=== PATIENT | female | born 1955 | race Caucasian/White ===

== ENCOUNTER 2021-08-17 19:16 | Emergency (ER) | payer MEDICARE, OTHER ==
--- NOTE | 2021-08-17 19:33 | ERPHSYRPT ---
- History of Present Illness Time Seen by Provider: 08/17/21 19:31 Source: patient Exam Limitations: no limitations Physician History: This is a right-handed 66-year-old white female who fell onto a right outstretched hand and presents to the emergency department with pain in her right wrist right forearm up to her elbow. She did not hit her head. She did not lose consciousness. Patient cannot take oral NSAIDs. Occurred: just prior to arrival Method of Injury: fell Quality: constant, aching, throbbing Severity of Pain-Max: moderate Severity of Pain-Current: moderate Extremities Pain Location: elbow: right, forearm: right, wrist: right Modifying Factors: Improves With: movement Associated Symptoms: none Allergies/Adverse Reactions: diphenhydramine HCl [From Benadryl] Allergy (Severe, Verified 08/17/21 19:27) seizure Penicillins Allergy (Severe, Verified 08/17/21 19:27) Difficulty Breathing chamomile flower [chamomile lawler] Allergy (Mild, Verified 08/17/21 19:27) Blisters gabapentin [From Neurontin] Allergy (Mild, Verified 08/17/21 19:27) Hives vancomycin Allergy (Mild, Verified 08/17/21 19:27) Itching Latex, Natural Rubber Adverse Reaction (Mild, Verified 08/17/21 19:27) Rash Home Medications: ARIPiprazole [Abilify] 5 mg PO DAILY 08/24/13 [History] Acetaminophen with Codeine [Tylenol #3 (Acetaminophen-Cod #3) Tablet] 1 tab PO Q6-8HPRN PRN 08/24/13 [History] Citalopram Hydrobromide [Citalopram HBr] 20 mg PO DAILY 08/24/13 [History] Dexlansoprazole [Dexilant] 60 mg PO DAILY 08/24/13 [History] Trazodone HCl 50 mg [Desyrel 50 mg] 50 mg PO DAILY 08/24/13 [History] Ciprofloxacin [Cipro 500 MG] 500 mg PO BID 10/20/13 [History] Solifenacin Succinate [Vesicare] 5 mg PO DAILY 10/20/13 [History] Hx Tetanus, Diphtheria Vaccination/Date Given: No Hx Influenza Vaccination/Date Given: No Hx Pneumococcal Vaccination/Date Given: No Travel Risk - International Travel Have you traveled outside of the country in past 3 weeks: No - Coronavirus Screening Are you exhibiting any of the following symptoms?: No Close contact with a COVID-19 positive Pt in past 14-21 Days: No - Review of Systems Constitutional: No Symptoms Eyes: No Symptoms Ears, Nose, & Throat: No Symptoms Respiratory: No Symptoms Cardiac: No Symptoms Abdominal/Gastrointestinal: No Symptoms Genitourinary Symptoms: No Symptoms Musculoskeletal: Fall, Injury (Right forearm and wrist) Skin: No Symptoms Neurological: No Symptoms Psychological: No Symptoms Endocrine: No Symptoms Hematologic/Lymphatic: No Symptoms Immunological/Allergic: No Symptoms All Other Systems: Reviewed and Negative - Past Medical History Pertinent Past Medical History: Yes Neurological History: Seizures ENT History: No Pertinent History Cardiac History: No Pertinent History Respiratory History: Other Endocrine Medical History: Other Musculoskeletal History: Osteoarthritis, Other GI Medical History: Ulcer, GERD History: No Pertinent History Psycho-Social History: Depression, Anxiety Female Reproductive Disorders: No Pertinent History Other Medical History: HYPOGLYCEMIC. HAD EPISODE IN WHICH SHE WAS COMATOSE AND THEN HAD TO DO [facility]. HX OF SEIZURE AN ALLERGIC REACTION TO BENADRYL. HX OF COVID - REPORTS WAS ASYMPTOMATIC. IS VACCINATED. TARSAL TUNNEL REPAIRED ON RIGHT 2017. RIGHT TOTAL KNEE REPLACMENT "AT LEAST 5 YEARS AGO". CHOLECYSTECTOMY. ANEMIC REQUIRING IRON INFUSION - TESTED EVERY 6 MONTHS. - Past Surgical History Past Surgical History: Yes Neuro Surgical History: No Pertinent History Cardiac: No Pertinent History Respiratory: No Pertinent History Gastrointestinal: Other, Appendectomy, Cholecystectomy Genitourinary: No Pertinent History Musculoskeletal: Orthopedic Surgery Female Surgical History: Hysterectomy, Section Other Surgical History: r knee x 7, r wrist - gastric bypass - Social History Smoking Status: Former smoker Exposure to second hand smoke: No Drug Use: none Patient Lives Alone: No - Nursing Vital Signs Nursing Vital Signs: Initial Vital Signs Temperature 96.9 F 08/17/21 19:28 Pulse Rate 68 08/17/21 19:28 Respiratory Rate 16 08/17/21 19:28 Blood Pressure 158/80 08/17/21 19:28 O2 Sat by Pulse Oximetry 99 08/17/21 19:28 Pain Scale Pain Intensity 10 - Physical Exam General Appearance: mild distress (To moderate), alert, anxiety Eyes, Ears, Nose, Throat Exam: normal ENT inspection, moist mucous membranes Neck Exam: normal inspection, non-tender, supple, full range of motion Cardiovascular/Respiratory Exam: chest non-tender, no respiratory distress Back Exam: normal inspection, normal range of motion, No CVA tenderness, No vertebral tenderness Shoulder Exam: normal inspection, non-tender, no evidence of injury, normal ROM Elbow/Forearm Exam: normal inspection, no evidence of injury, bone tenderness, limited ROM, pain, soft tissue tenderness Wrist Exam: no evidence of injury, ecchymosis (Volar aspect right wrist), limited ROM, pain, soft tissue tenderness Hand Exam: normal inspection, non-tender, no evidence of injury, normal ROM Neuro/Tendon Exam: normal sensation, normal motor functions, normal tendon functions, responds to pain, no evidence tendon injury, No motor deficit, No sensory deficit Mental Status Exam: alert, 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, cooperative Skin Exam: normal color, warm, dry SpO2 Interpretation: normal O2 Delivery: Room Air - Course Nursing assessment & vital signs reviewed: Yes Ordered Tests: Active Orders 24 hr Category Date Time Status Sling Application STAT Care 08/17/21 20:48 Active Splint STAT Care 08/17/21 20:48 Active FOREARM Stat Exams 08/17/21 19:56 Completed WRIST (MIN 3 VIEWS) Stat Exams 08/17/21 19:38 Completed Medication Summary Discontinued Medications Generic Name Dose Route Start Last Admin Trade Name Mei PRN Reason Stop Dose Admin Hydromorphone HCl 0.5 mg 08/17/21 19:46 08/17/21 20:30 Hydromorphone 1 Mg/1ml Inj 1 Mg/Ml Syringe IM 08/17/21 19:47 0.5 mg STAT ONE Administration Hydromorphone HCl Confirm 08/17/21 20:28 Hydromorphone 1 Mg/1ml Inj 1 Mg/Ml Syringe Administered 08/17/21 20:29 Dose 1 mg .ROUTE .STK-MED ONE Ketorolac Tromethamine 60 mg 08/17/21 19:46 08/17/21 20:29 Ketorolac Tromethamine 30 Mg/Ml Inj IM 08/17/21 19:47 60 mg STAT ONE Administration Ketorolac Tromethamine Confirm 08/17/21 20:27 Ketorolac Tromethamine 30 Mg/Ml Inj Administered 08/17/21 20:28 Dose 60 mg .ROUTE .STK-MED ONE Ondansetron HCl 4 mg 08/17/21 19:47 08/17/21 20:30 Zofran 4 Mg/Udtablet Orally Disintegrating PO 08/17/21 19:48 4 mg STAT ONE Administration Ondansetron HCl Confirm 08/17/21 20:27 Zofran 4 Mg/Udtablet Orally Disintegrating Administered 08/17/21 20:28 Dose 4 mg .ROUTE .STK-MED ONE - Progress Progress: improved, pain not gone completely Progress Note: 08/17/21 20:50 X-ray of right wrist shows no acute fracture or dislocation. X-ray of right forearm shows no acute fracture or dislocation. Medical decision making: This patient has pain in the right wrist and right forearm despite no evidence of fracture based on x-rays that were read by myself and the radiologist. We will place her in a right wrist splint and put her in a sling and have her follow-up in the [facility] orthopedic clinic on Friday, August 20, 2021 at 8 AM. We will send her home with 2 Walsh pain pills and then an additional 6 Walsh 5/25 pills and a prescription that will be sent to her pharmacy. Counseled pt/family regarding: diagnosis, need for follow-up, rad results - Departure Departure Disposition: Home Clinical Impression: Right wrist pain, Right forearm pain Condition: Stable Critical Care Time: No Referrals: JERE PACHECO MD [Primary Care Provider] - Follow up/PCP as directed Additional Instructions: Wear the right wrist splint and use the right arm sling for comfort. Use the medication as prescribed. Follow-up in the [facility] walk-in orthopedic clinic on Friday at 8 AM for further evaluation and management. Take your pain medicine as prescribed. Prescriptions: Hydrocodone/APAP 5/325 [Walsh 5/325 mg] 1 each PO Q8H PRN PRN #6 tablet MDD 3 PRN Reason: Pain
[2021-08-17] MEDS ORDERED: TORAdol 30 mg Injection IM ONE (19:46)
[2021-08-17] MEDS ORDERED: Hydromorphone 1 mg/ml Injection IM ONE (19:46)
[2021-08-17] MEDS ORDERED: ZOFRAN ODT 4 MG PO ONE (19:47)
[2021-08-17] MEDS ORDERED: ZOFRAN ODT 4 MG ONE (20:27)
[2021-08-17] MEDS ORDERED: TORAdol 30 mg Injection ONE (20:27)
[2021-08-17] MEDS ORDERED: Hydromorphone 1 mg/ml Injection ONE (20:28)
[2021-08-17 20:40] VITALS: PULSE 63
--- NOTE | 2021-08-17 20:46 | XRAY ---
Indication: Pain following fall. Comparison: None 2 view right forearm demonstrates mild osteopenia. No other bony, articular, or soft tissue abnormalities.
--- NOTE | 2021-08-17 20:48 | XRAY ---
Indication: Pain following fall. Comparison: None 3 view right wrist demonstrate mild osteopenia. No other bony, articular, or soft tissue abnormalities.
[2021-08-17] MEDS ORDERED: NORCO 5/325 MG PO ONE (20:54)
[2021-08-17] MEDS ORDERED: NORCO 5/325 MG ONE (21:07)
[2021-08-17 21:17] VITALS: BP 159/80; O2SAT 98
== END 2021-08-17 21:27 | disposition home or self-care (01) ==
LOC: ED 19:16
DX: M25.531 Pain in right wrist (principal); M79.631 Pain in right forearm; W19.XXXA Unspecified fall, initial encounter; Z79.891 Long term (current) use of opiate analgesic; Z79.899 Other long term (current) drug therapy
CPT/HCPCS: 73090; 73110; 96372; 99284; J1170; J1885; L3908; Q0162; A9270-GY

== ENCOUNTER 2022-07-13 20:29 | Emergency (ER) | payer MEDICARE, OTHER ==
--- NOTE | 2022-07-13 20:57 | ERPHSYRPT ---
- History of Present Illness Time Seen by Provider: 07/13/22 20:56 Source: patient, family Exam Limitations: no limitations Patient Subjective Stated Complaint: pt states she has been coughing since friday and has pain with coughing and deep breathing and some shortness of breath with exertion. Triage Nursing Assessment: pt alerta nd oriented, answers questions approp. pt ambulates back to room iwth steady gait noted. pt short of breath with exertion. interimittent hacking cough noted. pt reports pain in ribs with coughing. denies chest pain or pressure. Physician History: This is an overweight 67-year-old white female patient of Dr. Pacheco and has a history of osteoarthritis, hypoglycemia, seizure disorder gastroesophageal reflux disease and has had a gastric bypass in the past. She presents with her with the complaint of coughing for 3 days. Her generalized pain is getting worse especially with coughing. She does have mild shortness of breath with coughing spells. She also has bilateral rib pain with coughing. She has had no nausea vomiting or diarrhea. She denies abdominal pain. She has no known exposure with individuals who have similar symptoms or been diagnosed with flu. Timing/Duration: day(s) (3), intermittent, worse Cough Quality/Degree: mild, dry cough Possible Cause: occasional episodes Modifying Factors: Improves With: coughing Associated Symptoms: chest pain/soreness (Only with coughing and its the ribs not the anterior chest), cough, muscle aches, sore throat, No fever, No chills, No wheezing Allergies/Adverse Reactions: diphenhydramine HCl [From Benadryl] Allergy (Severe, Verified 07/13/22 20:46) seizure Penicillins Allergy (Severe, Verified 07/13/22 20:46) Difficulty Breathing chamomile flower [chamomile lawler] Allergy (Mild, Verified 07/13/22 20:46) Blisters gabapentin [From Neurontin] Allergy (Mild, Verified 07/13/22 20:46) Hives Latex, Natural Rubber Allergy (Mild, Verified 07/13/22 20:46) Rash vancomycin Allergy (Mild, Verified 07/13/22 20:46) Itching only iv Home Medications: ARIPiprazole [Abilify] 5 mg PO DAILY 08/24/13 [History] Acetaminophen with Codeine [Tylenol #3 (Acetaminophen-Cod #3) Tablet] 1 tab PO Q6-8HPRN PRN 08/24/13 [History] Citalopram Hydrobromide [Citalopram HBr] 20 mg PO DAILY 08/24/13 [History] Dexlansoprazole [Dexilant] 60 mg PO DAILY 08/24/13 [History] Trazodone HCl 50 mg [Desyrel 50 mg] 50 mg PO DAILY 08/24/13 [History] Ciprofloxacin [Cipro 500 MG] 500 mg PO BID 10/20/13 [History] Solifenacin Succinate [Vesicare] 5 mg PO DAILY 10/20/13 [History] Hx Tetanus, Diphtheria Vaccination/Date Given: Yes Hx Influenza Vaccination/Date Given: No Hx Pneumococcal Vaccination/Date Given: No Immunizations Up to Date: Yes Travel Risk - International Travel Have you traveled outside of the country in past 3 weeks: No - Coronavirus Screening Are you exhibiting any of the following symptoms?: No Symptoms: Cough: New Onset, Shortness of Breath Close contact with a COVID-19 positive Pt in past 14-21 Days: No - Vaccine Status Have you recieved a Covid-19 vaccination: Yes 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[employer] Video - Vaccination Dates Date of 2cond Vaccination (if applicable): 2020 - Review of Systems Constitutional: No Symptoms Eyes: No Symptoms Ears, Nose, & Throat: No Symptoms Respiratory: Cough Cardiac: No Symptoms Abdominal/Gastrointestinal: No Symptoms Genitourinary Symptoms: No Symptoms Musculoskeletal: Arthralgias, Myalgias Skin: No Symptoms Neurological: No Symptoms Psychological: No Symptoms Endocrine: No Symptoms Hematologic/Lymphatic: No Symptoms Immunological/Allergic: No Symptoms All Other Systems: Reviewed and Negative - Past Medical History Pertinent Past Medical History: Yes Neurological History: Seizures ENT History: No Pertinent History Cardiac History: No Pertinent History Respiratory History: Other Endocrine Medical History: Other Musculoskeletal History: Osteoarthritis, Other GI Medical History: Ulcer, GERD History: No Pertinent History Psycho-Social History: Depression, Anxiety Female Reproductive Disorders: No Pertinent History Other Medical History: HYPOGLYCEMIC. HAD EPISODE IN WHICH SHE WAS COMATOSE AND THEN HAD TO DO [facility] MONTH [facility]. HX OF SEIZURE AN ALLERGIC REACTION TO BENADRYL. TARSAL TUNNEL REPAIRED ON RIGHT 2016. RIGHT TOTAL KNEE REPLACMENT "AT LEAST 5 YEARS AGO". CHOLECYSTECTOMY. ANEMIC REQUIRING IRON INFUSION - TESTED EVERY 6 MONTHS. - Past Surgical History Past Surgical History: Yes Neuro Surgical History: No Pertinent History Cardiac: No Pertinent History Respiratory: No Pertinent History Gastrointestinal: Other, Appendectomy, Cholecystectomy Genitourinary: No Pertinent History Musculoskeletal: Orthopedic Surgery Female Surgical History: Hysterectomy, Section Other Surgical History: r knee x 7, r wrist - gastric bypass - Social History Smoking Status: Former smoker Exposure to second hand smoke: No Drug Use: none Patient Lives Alone: No - Nursing Vital Signs Nursing Vital Signs: Initial Vital Signs Temperature 97.0 F 07/13/22 20:30 Pulse Rate 81 07/13/22 20:30 Respiratory Rate 20 07/13/22 20:30 Blood Pressure 134/81 07/13/22 20:30 O2 Sat by Pulse Oximetry 99 07/13/22 20:30 Pain Scale Pain Intensity 5 - Physical Exam General Appearance: no apparent distress, alert, anxiety Eye Exam: PERRL/EOMI, eyes nml inspection Ears, Nose, Throat Exam: normal ENT inspection, moist mucous membranes Neck Exam: normal inspection, non-tender, supple, full range of motion Respiratory Exam: normal breath sounds, lungs clear, airway intact, No chest tenderness, No respiratory distress Cardiovascular Exam: regular rate/rhythm, normal heart sounds, normal peripheral pulses Gastrointestinal/Abdomen Exam: soft, normal bowel sounds, No tenderness Pelvic Exam: not done Rectal Exam: not done Back Exam: normal inspection, normal range of motion, vertebral tenderness, No CVA tenderness Extremity Exam: normal inspection, normal range of motion, pelvis stable Neurologic Exam: alert, 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, cooperative, control supervisor II-XII nml as tested, normal mood/affect, nml cerebellar function, nml station & gait, sensation nml Skin Exam: normal color, warm, dry Lymphatic Exam: No adenopathy SpO2 Interpretation: normal SpO2: 99 O2 Delivery: Room Air - Course Nursing assessment & vital signs reviewed: Yes EKG Interpreted by Me: RATE (70), Sinus Rhythm, NORMAL AXIS, NORMAL INTERVALS, NORMAL QRS, NORMAL ST-T, Other (Acute ischemia on today's twelve-lead EKG.) Ordered Tests: Active Orders 24 hr Category Date Time Status Typewriter Aligner STAT Care 07/13/22 21:15 Active EKG-ER Only STAT Care 07/13/22 21:15 Active IV Insertion STAT Care 07/13/22 21:15 Active Pulse Oximetry (ED) STAT Care 07/13/22 21:15 Active CHEST 1 VIEW (PORTABLE) Stat Exams 07/13/22 21:17 Taken BLOOD CULTURE Stat Lab 07/13/22 21:40 Received CBC W DIFF Stat Lab 07/13/22 21:30 Completed CMP Stat Lab 07/13/22 21:30 Completed TROPONIN Q4H Lab 07/13/22 21:30 Completed UA W/RFX UR CULTURE Stat Lab 07/13/22 22:47 Completed Medication Summary Discontinued Medications Generic Name Dose Route Start Last Admin Trade Name Freq PRN Reason Stop Dose Admin Hydrocodone Bitart/Acetaminophen 10 ml 07/13/22 21:16 07/13/22 21:28 Hydrocodone/Acetaminophen 5 Ml Udcup PO 07/13/22 21:17 10 ml STAT STA Administration Hydrocodone Bitart/Acetaminophen Confirm 07/13/22 21:26 Hydrocodone/Acetaminophen 5 Ml Udcup Administered 07/13/22 21:27 Dose 10 ml .ROUTE .STK-MED ONE Methylprednisolone Sodium 0 mg 07/13/22 21:17 07/13/22 21:27 Succinate 40 mg/ Sterile Water IV 07/13/22 21:18 40 mg 1 ml STAT STA Administration Ceftriaxone Sodium/Dextrose 1 g in 50 mls @ 100 mls/hr 07/13/22 22:18 07/13/22 22:38 Rocephin 1 Gm-D5w 50 Ml Bag IV 07/13/22 22:47 100 mls/hr STAT STA 100 mls/hr Administration Ceftriaxone Sodium/Dextrose Confirm 07/13/22 22:35 Rocephin 1 Gm-D5w 50 Ml Bag Administered 07/13/22 22:36 Dose 1 g in 50 mls @ ud IV .STK-MED ONE Methylprednisolone Sodium Succinate Confirm 07/13/22 21:26 Methylprednisolone Sod Suc 40m 40 Mg/Ml Vial Administered 07/13/22 21:27 Dose 40 mg .ROUTE .STK-MED ONE Sterile Water Confirm 07/13/22 21:26 Water For Injection,Sterile 10 Ml Vial Administered 07/13/22 21:27 Dose 10 ml IJ .STK-MED ONE Lab/Rad Data: Laboratory Result Diagrams 07/13/22 21:30 07/13/22 21:30 Laboratory Results 07/13/22 07/13/2223 Range/Units 22:47 21:40 21:40 WBC (4.0-10.5) x10^3/uL RBC (4.1-5.4) x10^6/uL Hgb (12.0-16.0) g/dL Hct (35-47) % MCV (78-100) fL MCH (26-32) pg MCHC (32-36) g/dL RDW (11.5-14.0) % Plt Count (150-450) x10^3/uL MPV (7.5-11.0) fL Gran % (36.0-66.0) % Immature Gran % (Auto) (0.00-0.4) % Nucleat RBC Rel Count (0.00-0.1) % Eos # (Auto) (0-0.5) x10^3/uL Immature Gran # (Auto) (0.00-0.03) x10^3u/L Absolute Lymphs (auto) (1.0-4.6) x10^3/uL Absolute Monos (auto) (0.0-1.3) x10^3/uL Absolute Nucleated RBC (0.00-0.01) x10^3u/L Lymphocytes % (24.0-44.0) % Monocytes % (0.0-12.0) % Eosinophils % (0.00-5.0) % Basophils % (0.0-0.4) % Absolute Granulocytes (1.4-6.9) x10^3/uL Basophils # (0-0.4) x10^3/uL Sodium (137-145) mmol/L Potassium (3.5-5.1) mmol/L Chloride (98-107) mmol/L Carbon Dioxide (22-30) mmol/L Anion Gap (5-15) MEQ/L BUN (7-17) mg/dL Creatinine (0.52-1.04) mg/dL Estimated GFR ML/MIN Glucose (74-106) mg/dL Calcium (8.4-10.2) mg/dL Total Bilirubin (0.2-1.3) mg/dL AST (14-36) U/L ALT (0-35) U/L Alkaline Phosphatase (38-126) U/L Troponin I (0.000-0.034) ng/mL Serum Total Protein (6.3-8.2) g/dL Albumin (3.5-5.0) g/dL Urine Color Yellow (Yellow) Urine Appearance Clear (Clear) Urine pH 6.5 (4.6-8.0) Ur Specific [place] 1.015 (1.005-1.030) Urine Protein Negative (Negative) Urine Glucose (UA) Negative (Negative) mg/dL Urine Ketones Negative (Negative) Urine Blood Negative (Negative) Urine Nitrite Negative (Negative) Urine Bilirubin Negative (Negative) Urine Urobilinogen 0.2 (0.2) mg/dL Ur Leukocyte Esterase Trace A (Negative) U Hyaline Cast (Auto) NONE SEEN (0-2) /LPF Urine Microscopic RBC 0-2 (0-5) /HPF Urine Microscopic WBC 3-5 (0-5) /HPF Ur Epithelial Cells Rare (None Seen) /HPF Urine Bacteria Rare A (None Seen) /HPF Urine Culture Reflexed NO (NO) Influenza Type A Ag NEGATIVE (NEGATIVE) Influenza Type B Ag NEGATIVE (NEGATIVE) RSV (PCR) NEGATIVE (NEGATIVE) SARS-CoV-2 (PCR) NEGATIVE (NEGATIVE) Group A Strep Antibody NOT DETECTED (NEGATIVE) 07/13/22 07/13/22 07/13/22 Range/Units 21:30 21:30 21:30 WBC 5.0 (4.0-10.5) x10^3/uL RBC 4.01 L (4.1-5.4) x10^6/uL Hgb 12.6 (12.0-16.0) g/dL Hct 39.9 (35-47) % MCV 99.5 (78-100) fL MCH 31.4 (26-32) pg MCHC 31.6 L (32-36) g/dL RDW 12.6 (11.5-14.0) % Plt Count 286 (150-450) x10^3/uL MPV 10.5 (7.5-11.0) fL Gran % 52.1 (36.0-66.0) % Immature Gran % (Auto) 0.2 (0.00-0.4) % Nucleat RBC Rel Count 0.0 (0.00-0.1) % Eos # (Auto) 0.07 (0-0.5) x10^3/uL Immature Gran # (Auto) 0.01 (0.00-0.03) x10^3u/L Absolute Lymphs (auto) 1.69 (1.0-4.6) x10^3/uL Absolute Monos (auto) 0.61 (0.0-1.3) x10^3/uL Absolute Nucleated RBC 0.00 (0.00-0.01) x10^3u/L Lymphocytes % 33.9 (24.0-44.0) % Monocytes % 12.2 H (0.0-12.0) % Eosinophils % 1.4 (0.00-5.0) % Basophils % 0.2 (0.0-0.4) % Absolute Granulocytes 2.59 (1.4-6.9) x10^3/uL Basophils # 0.01 (0-0.4) x10^3/uL Sodium 135 L (137-145) mmol/L Potassium 4.3 (3.5-5.1) mmol/L Chloride 104 (98-107) mmol/L Carbon Dioxide 19 L (22-30) mmol/L Anion Gap 16.2 H (5-15) MEQ/L BUN 15 (7-17) mg/dL Creatinine 0.67 (0.52-1.04) mg/dL Estimated GFR > 60.0 ML/MIN Glucose 205 H (74-106) mg/dL Calcium 8.4 (8.4-10.2) mg/dL Total Bilirubin 0.90 (0.2-1.3) mg/dL AST 48 H (14-36) U/L ALT 25 (0-35) U/L Alkaline Phosphatase 79 (38-126) U/L Troponin I < 0.012 (0.000-0.034) ng/mL Serum Total Protein 7.7 (6.3-8.2) g/dL Albumin 4.3 (3.5-5.0) g/dL Urine Color (Yellow) Urine Appearance (Clear) Urine pH (4.6-8.0) Ur Specific [place] (1.005-1.030) Urine Protein (Negative) Urine Glucose (UA) (Negative) mg/dL Urine Ketones (Negative) Urine Blood (Negative) Urine Nitrite (Negative) Urine Bilirubin (Negative) Urine Urobilinogen (0.2) mg/dL Ur Leukocyte Esterase (Negative) U Hyaline Cast (Auto) (0-2) /LPF Urine Microscopic RBC (0-5) /HPF Urine Microscopic WBC (0-5) /HPF Ur Epithelial Cells (None Seen) /HPF Urine Bacteria (None Seen) /HPF Urine Culture Reflexed (NO) Influenza Type A Ag (NEGATIVE) Influenza Type B Ag (NEGATIVE) RSV (PCR) (NEGATIVE) SARS-CoV-2 (PCR) (NEGATIVE) Group A Strep Antibody (NEGATIVE) - Progress Progress: improved, re-examined Air Movement: good Progress Note: 07/13/22 22:19 Chest x-ray was interpreted by me. There is no definite infiltrate but there is a question of increased bronchial markings in the right perihilar region. The patient's says that she has had Keflex in the past and tolerated that well. This patient's medical issue is 1 of moderate complexity. The level of com plexity and the work-up performed is based on review of the patient's past medical history, review the patient's medication list, review of the patient's drug allergy list, history of present illness and physical findings on examination. Work-up includes CBC, CMP, flu swabs, strep swabs, chest x-ray, twelve-lead EKG, troponin level. We are awaiting the flu and strep swab results. Patient appears to have an upper respiratory infection. This fits with the patient's clinical findings as well as the findings on chest x-ray. We will provide her with Rocephin 1 g intravenously followed by sending a prescription for azithromycin, steroids and antitussive to her pharmacy remotely. 07/13/22 22:33 Patient states that she is feeling much better. Patient states that she does have Tylenol 3 at home and not what she will use as her antitussive. Blood Culture(s) Obtained: Yes Antibiotics given: Yes Counseled pt/family regarding: lab results, diagnosis, need for follow-up, rad results Medical Desision Making - Independent Historian Additional History obtained from: Spouse - Diagnostic Testing Diagnostic test were ordered, analyzed, and reviewed by me: Yes Radiological Interpretation: Interpreted by me - Risk of complications The pt has a mod risk of morbidity or mortality based on: Need for prescription drug management - Departure Departure Disposition: Home Clinical Impression: Upper respiratory infection Condition: Stable Critical Care Time: No Referrals: JERE PACHECO MD [Primary Care Provider] - Follow up/PCP as directed Additional Instructions: Take your medication as prescribed. Follow-up with your primary care provider for further evaluation and management. Prescriptions: Prednisone 10 mg [Deltasone 10 mg] 10 mg PO TID #12 tablet Azithromycin 250 mg [Zithromax 250 MG TABLET] 250 mg PO ZPACK #6 tablet
[2022-07-13] MEDS ORDERED: HYDROCODONE-ACETAMIN 2.5-108/5 ML SOLUTION PO STA (21:16)
[2022-07-13] MEDS ORDERED: solu-MEDROL 40 MG, Sterile H2O 10 ml 1 ML IV STA ×2 (21:17)
[2022-07-13] MEDS ORDERED: HYDROCODONE-ACETAMIN 2.5-108/5 ML SOLUTION ONE (21:26)
[2022-07-13] MEDS ORDERED: Sterile H2O 10 ml IJ ONE (21:26)
[2022-07-13] MEDS ORDERED: solu-MEDROL ONE (21:26)
[2022-07-13 21:47] LABS: Absolute Neutrophil Ct (ANC) 2.59 x10^3/uL (1.4-6.9); BASOPHIL % 0.2 % (0.0-0.4); Basophil (Absolute #) 0.01 x10^3/uL (0-0.4); Eosinophil % 1.4 % (0.00-5.0); Eosinophil (Absolute #) 0.07 x10^3/uL (0-0.5); Hematocrit 39.9 % (35-47); Hemoglobin 12.6 g/dL (12.0-16.0); IMMATURE GRAN # 0.01 x10^3u/L (0.00-0.03); IMMATURE GRAN % 0.2 % (0.00-0.4); Lymphocyte (Absolute #) 1.69 x10^3/uL (1.0-4.6); Lymphocytes % 33.9 % (24.0-44.0); Mean Cell Volume 99.5 fL (78-100); Mean Corpuscular Hemoglobin 31.4 pg (26-32); Mean Corpuscular Hgb Concent. 31.6 g/dL (32-36); Mean Platelet Volume 10.5 fL (7.5-11.0); Monocyte (Absolute #) 0.61 x10^3/uL (0.0-1.3); Monocytes % 12.2 % (0.0-12.0); Neutrophil % 52.1 % (36.0-66.0); Platelet Count 286 x10^3/uL (150-450); Red Blood Count 4.01 x10^6/uL (4.1-5.4); Red Cell Distribution Width 12.6 % (11.5-14.0)
[2022-07-13 21:58] LABS: ALBUMIN 4.3 g/dL (3.5-5.0); ALKALINE PHOSPHATASE 79 U/L (38-126); ANION GAP 16.2 MEQ/L (5-15); BLOOD UREA NITROGEN 15 mg/dL (7-17); CHLORIDE 104 mmol/L (98-107); Calcium 8.4 mg/dL (8.4-10.2); Carbon Dioxide 19 mmol/L (22-30); Creatinine 1 0.67 mg/dL (0.52-1.04); EST GLOMERULAR FILTRATION RATE > 60.0 ML/MIN; Glucose 205 mg/dL (74-106); Potassium 4.3 mmol/L (3.5-5.1); SGOT/AST 48 U/L (14-36); SGPT/ALT 25 U/L (0-35); SODIUM 135 mmol/L (137-145); Total Protein 7.7 g/dL (6.3-8.2)
[2022-07-13 22:06] VITALS: BP 109/54; PULSE 61
[2022-07-13] MEDS ORDERED: ROCEPHIN 1 Gm-D5w 50 ml Bag** 1 G/50 ML IVPB IV STA (22:18)
[2022-07-13 22:22] VITALS: O2SAT 99
[2022-07-13 22:23] LABS: INFLUENZA A NEGATIVE (NEGATIVE); INFLUENZA B NEGATIVE (NEGATIVE); RESPIRATORY SYNCTIAL VIRUS NEGATIVE (NEGATIVE); SARS-CoV-2 Xpert Express NEGATIVE (NEGATIVE)
[2022-07-13] MEDS ORDERED: ROCEPHIN 1 Gm-D5w 50 ml Bag** 1 G/50 ML IVPB IV ONE (22:35)
[2022-07-13 22:56] LABS: ADD URINE CULTURE? NO (NO); Appearance Clear (Clear); Bacteria Rare /HPF (None Seen); Bilirubin Negative (Negative); Blood Negative (Negative); Epithelial Cells Rare /HPF (None Seen); Glucose, Urine Negative (Negative); Hyaline Casts NONE SEEN /LPF (0-2); Ketones Negative (Negative); Leukocyte Esterase Trace (Negative); Nitrite Negative (Negative); Ph 6.5 (4.6-8.0); Protein,Urine Dip Negative (Negative); RBC 0-2 /HPF (0-5); Specific Gravity 1.015 (1.005-1.030); Urobilinogen 0.2 mg/dL (0.2)
--- NOTE | 2022-07-14 07:13 | XRAY ---
Indication: Cough. Comparison: August 24, 2013 Portable chest demonstrates new subtle right infrahilar interstitial opacities. Remaining heart and lungs unremarkable. Bony thorax intact..
== END 2022-07-13 23:18 | disposition home or self-care (01) ==
LOC: ED 20:29
DX: J06.9 Acute upper respiratory infection, unspecified (principal); R05.1 Acute cough; Z79.891 Long term (current) use of opiate analgesic; Z79.52 Long term (current) use of systemic steroids; Z79.899 Other long term (current) drug therapy
CPT/HCPCS: 0241U; 36000; 36415; 71045; 80053; 81001; 84484; 85025; 87040; 87651; 93005; 93041; 94760; 96365; 96374; 99284; J0696; J2920; A9270-GY

== ENCOUNTER 2022-12-18 13:20 | Day surgery (SDC) | payer MEDICARE ==
[2022-12-18] MEDS ORDERED: Sodium Chloride 0.9(Preservative Free) 10 ML IJ ONE (13:21)
[2022-12-18] MEDS ORDERED: Depo-Medrol 40 MG/ML IM ONE (13:21)
[2022-12-18] MEDS ORDERED: DIPRIVAN 200 MG/20 ML IV ONE (15:50)
[2022-12-18] MEDS ORDERED: Xylocaine-Mpf 2% 5 Ml Vial ONE (15:51)
[2022-12-18] MEDS ORDERED: MORPHINE SULFATE 2 MG INJ ONE (16:06)
--- NOTE | 2022-12-18 16:45 | XRAY ---
Indication: Caudal LIU.. Intraoperative fluoroscopy provided for 13 seconds. 2 digital spot image submitted for interpretation demonstrates caudal needle tip projecting mid sacrum. Small amount of contrast injected for needle tip placement. Correlate with intraoperative findings/report.
--- NOTE | 2022-12-18 16:47 | XRAY ---
13 seconds of fluoroscopy was used in surgery for a caudal LIU.
[2022-12-18] MEDS ORDERED: Lactated Ringers 1,000 ML IV ONE (17:25)
== END 2022-12-18 16:33 | disposition home or self-care (01) ==
LOC: SDC-PAIN 13:20
PROVIDERS: ATTEND Psychiatry & Neurology Pain Medicine
DX: M54.16 Radiculopathy, lumbar region (principal)
CPT/HCPCS: 62323; 72220; 77003; J1030; J2270; J2704; Q9966

== ENCOUNTER 2023-03-22 00:32 | Emergency (ER) | payer MEDICARE ==
[2023-03-22 00:55] VITALS: O2SAT 97
--- NOTE | 2023-03-22 01:03 | ERPHSYRPT ---
- History of Present Illness Time Seen by Provider: 03/22/23 00:56 Source: patient, family Exam Limitations: no limitations Patient Subjective Stated Complaint: pt states she has had a cough, fever for over 1 week. has had shortness of breath for approx 4 days Triage Nursing Assessment: pt alert and oriented, answers questions approp. pt ambulate back to room with steady gait noted. respiraitons nonlabored. frequent hacking cough noted. pt states nonproductive Physician History: The patient is a 67-year-old has been seen by her primary care doctor. She has been tested for flu COVID and RSV. This been negative. She has had cough and congestion viral syndrome. She has had shortness of breath. They are having trouble picking up her sats earlier tonight. The thought she was confused. 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 He is very nervous. At this point she is at her baseline. She states that she just feels weak and short of breath all the time. This is been going on for several weeks. Allergies/Adverse Reactions: diphenhydramine HCl [From Benadryl] Allergy (Severe, Verified 03/22/23 00:55) seizure Penicillins Allergy (Severe, Verified 03/22/23 00:55) Difficulty Breathing chamomile flower [chamomile lawler] Allergy (Mild, Verified 03/22/23 00:55) Blisters gabapentin [From Neurontin] Allergy (Mild, Verified 03/22/23 00:55) Hives Latex, Natural Rubber Allergy (Mild, Verified 03/22/23 00:55) Rash vancomycin Allergy (Mild, Verified 03/22/23 00:55) Itching only iv Home Medications: ARIPiprazole [Abilify] 5 mg PO DAILY 08/24/13 [History] Acetaminophen with Codeine [Tylenol #3 (Acetaminophen-Cod #3) Tablet] 1 tab PO Q6-8HPRN PRN 08/24/13 [History] Citalopram Hydrobromide [Citalopram HBr] 20 mg PO DAILY 08/24/13 [History] Dexlansoprazole [Dexilant] 60 mg PO DAILY 08/24/13 [History] Trazodone HCl 50 mg [Desyrel 50 mg] 50 mg PO DAILY 08/24/13 [History] Ciprofloxacin [Cipro 500 MG] 500 mg PO BID 10/20/13 [History] Solifenacin Succinate [Vesicare] 5 mg PO DAILY 10/20/13 [History] Hx Tetanus, Diphtheria Vaccination/Date Given: No Hx Influenza Vaccination/Date Given: No Hx Pneumococcal Vaccination/Date Given: No Immunizations Up to Date: No Travel Risk - International Travel Have you traveled outside of the country in past 3 weeks: No - Coronavirus Screening Are you exhibiting any of the following symptoms?: Yes Symptoms: Fever, Cough: New Onset, Shortness of Breath Close contact with a COVID-19 positive Pt in past 14-21 Days: No - Vaccine Status Have you recieved a Covid-19 vaccination: Yes 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: [employer] - Vaccination Dates Date of 2cond Vaccination (if applicable): 2020 - Review of Systems Constitutional: Fever, Chills, Fatigue Eyes: No Symptoms Ears, Nose, & Throat: No Symptoms Respiratory: Cough, Dyspnea Cardiac: No Chest Pain, No Edema, No Syncope Abdominal/Gastrointestinal: No Abdominal Pain, No Nausea, No Vomiting, No Diarrh ea Genitourinary Symptoms: No Dysuria Musculoskeletal: No Back Pain, No Neck Pain Skin: No Rash Neurological: No Dizziness, No Focal Weakness, No Sensory Changes Psychological: No Symptoms Endocrine: No Symptoms All Other Systems: Reviewed and Negative - Past Medical History Pertinent Past Medical History: Yes Neurological History: Seizures ENT History: No Pertinent History Cardiac History: No Pertinent History Respiratory History: Other Endocrine Medical History: Other Musculoskeletal History: Osteoarthritis, Other GI Medical History: Ulcer, GERD History: No Pertinent History Psycho-Social History: Depression, Anxiety Female Reproductive Disorders: No Pertinent History Other Medical History: HYPOGLYCEMIC. HAD EPISODE IN WHICH SHE WAS COMATOSE AND THEN HAD TO DO [facility] MONTH [facility]. HX OF SEIZURE AN ALLERGIC REACTION TO BENADRYL. TARSAL TUNNEL REPAIRED ON RIGHT 2017. RIGHT TOTAL KNEE REPLACMENT "AT LEAST 5 YEARS AGO". CHOLECYSTECTOMY. ANEMIC REQUIRING IRON INFUSION - TESTED EVERY 6 MONTHS. - Past Surgical History Past Surgical History: Yes Neuro Surgical History: No Pertinent History Cardiac: No Pertinent History Respiratory: No Pertinent History Gastrointestinal: Cholecystectomy, Other Genitourinary: No Pertinent History Musculoskeletal: Orthopedic Surgery Female Surgical History: Hysterectomy, Section Other Surgical History: r knee x 7, r wrist - gastric bypass - Social History Smoking Status: Former smoker Exposure to second hand smoke: No Drug Use: none Patient Lives Alone: No - Nursing Vital Signs Nursing Vital Signs: Initial Vital Signs Temperature 100.3 F 03/22/23 00:33 Pulse Rate 102 H 03/22/23 00:33 Respiratory Rate 18 03/22/23 00:33 Blood Pressure 105/64 03/22/23 00:33 O2 Sat by Pulse Oximetry 97 03/22/23 00:33 Pain Scale Pain Intensity 0 - Physical Exam General Appearance: no apparent distress, alert Eye Exam: PERRL/EOMI Neck Exam: normal inspection, supple Cardiovascular/Chest Exam: normal heart sounds, regular rate/rhythm Abdominal/Gastrointestinal Exam: soft, No tenderness, No distention, No mass Extremity Exam: non-tender, normal range of motion, normal inspection, no calf tenderness, no pedal edema Neurologic Exam: alert, 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, cooperative, 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 Nonspecific ST wave flattening no acute findings on EKG) Ordered Tests: Active Orders 24 hr Category Date Time Status EKG-ER Only STAT Care 03/22/23 00:56 Completed CHEST 1 VIEW (PORTABLE) Stat Exams 03/22/23 00:57 Taken HEAD WITHOUT CONTRAST [CT] Stat Exams 03/22/23 00:58 Completed BLOOD CULTURE Stat Lab 03/22/23 03:00 Received CBC W DIFF Stat Lab 03/22/23 02:00 Completed CMP Stat Lab 03/22/23 02:00 Completed D-DIMER QUANTITATIVE Stat Lab 03/22/23 02:00 Completed Lactic Acid Stat Lab 03/22/23 03:00 Completed NT PRO BNPII Stat Lab 03/22/23 02:00 Completed PROTIME WITH INR Stat Lab 03/22/23 02:00 Completed PTT Stat Lab 03/22/23 02:00 Completed TROPONIN Q4H Lab 03/22/23 02:00 Completed Medication Summary Discontinued Medications Generic Name Dose Route Start Last Admin Trade Name Freq PRN Reason Stop Dose Admin Levofloxacin 500 mg 03/22/23 02:36 Levofloxacin 250 Mg Tab PO 03/22/23 02:37 STAT ONE Levofloxacin Confirm 03/22/23 03:06 Levofloxacin 500 Mg Tablet Administered 03/22/23 03:07 Dose 500 mg .ROUTE .STK-MED ONE Levofloxacin 500 mg 03/22/23 03:10 03/22/23 03:11 Levofloxacin 500 Mg Tablet PO 03/22/23 03:11 500 mg STAT ONE Administration Lab/Rad Data: Laboratory Result Diagrams 03/22/23 02:00 03/22/23 02:00 Laboratory Results 03/22/23 03/22/23 03/22/23 Range/Units 03:00 02:00 02:00 WBC (4.0-10.5) x10^3/uL RBC (4.1-5.4) x10^6/uL Hgb (12.0-16.0) g/dL Hct (35-47) % MCV (78-100) fL MCH (26-32) pg MCHC (32-36) g/dL RDW (11.5-14.0) % Plt Count (150-450) x10^3/uL MPV (7.5-11.0) fL Gran % (36.0-66.0) % Immature Gran % (Auto) (0.00-0.4) % Nucleat RBC Rel Count (0.00-0.1) % Eos # (Auto) (0-0.5) x10^3/uL Immature Gran # (Auto) (0.00-0.03) x10^3u/L Absolute Lymphs (auto) (1.0-4.6) x10^3/uL Absolute Monos (auto) (0.0-1.3) x10^3/uL Absolute Nucleated RBC (0.00-0.01) x10^3u/L Lymphocytes % (24.0-44.0) % Monocytes % (0.0-12.0) % Eosinophils % (0.00-5.0) % Basophils % (0.0-0.4) % Absolute Granulocytes (1.4-6.9) x10^3/uL Basophils # (0-0.4) x10^3/uL PT 10.8 (9.4-12.5) SECONDS INR 0.99 (0.8-3.0) APTT 28.6 (25.1-36.5) SECONDS D-Dimer 0.59 H (0.0-0.50) mg/L Sodium (137-145) mmol/L Potassium (3.5-5.1) mmol/L Chloride (98-107) mmol/L Carbon Dioxide (22-30) mmol/L Anion Gap (5-15) MEQ/L BUN (7-17) mg/dL Creatinine (0.52-1.04) mg/dL Estimated GFR ML/MIN Glucose (74-106) mg/dL Lactic Acid 1.6 (0.4-2.0) Calcium (8.4-10.2) mg/dL Total Bilirubin (0.2-1.3) mg/dL AST (14-36) U/L ALT (0-35) U/L Alkaline Phosphatase (38-126) U/L Troponin I < 0.012 (0.000-0.034) ng/mL NT-Pro-B Natriuret Pep (<300) pg/mL Serum Total Protein (6.3-8.2) g/dL Albumin (3.5-5.0) g/dL 03/22/23 03/22/23 Range/Units 02:00 02:00 WBC 20.3 H (4.0-10.5) x10^3/uL RBC 3.43 L (4.1-5.4) x10^6/uL Hgb 10.5 L (12.0-16.0) g/dL Hct 32.2 L (35-47) % MCV 93.9 (78-100) fL MCH 30.6 (26-32) pg MCHC 32.6 (32-36) g/dL RDW 12.7 (11.5-14.0) % Plt Count 381 (150-450) x10^3/uL MPV 9.3 (7.5-11.0) fL Gran % 81.3 H (36.0-66.0) % Immature Gran % (Auto) 0.7 H (0.00-0.4) % Nucleat RBC Rel Count 0.0 (0.00-0.1) % Eos # (Auto) 0.01 (0-0.5) x10^3/uL Immature Gran # (Auto) 0.15 H (0.00-0.03) x10^3u/L Absolute Lymphs (auto) 1.51 (1.0-4.6) x10^3/uL Absolute Monos (auto) 2.12 H (0.0-1.3) x10^3/uL Absolute Nucleated RBC 0.00 (0.00-0.01) x10^3u/L Lymphocytes % 7.4 L (24.0-44.0) % Monocytes % 10.4 (0.0-12.0) % Eosinophils % 0.0 (0.00-5.0) % Basophils % 0.2 (0.0-0.4) % Absolute Granulocytes 16.46 H (1.4-6.9) x10^3/uL Basophils # 0.04 (0-0.4) x10^3/uL PT (9.4-12.5) SECONDS INR (0.8-3.0) APTT (25.1-36.5) SECONDS D-Dimer (0.0-0.50) mg/L Sodium 134 L (137-145) mmol/L Potassium 3.2 L (3.5-5.1) mmol/L Chloride 103 (98-107) mmol/L Carbon Dioxide 23 (22-30) mmol/L Anion Gap 11.6 (5-15) MEQ/L BUN 17 (7-17) mg/dL Creatinine 0.65 (0.52-1.04) mg/dL Estimated GFR 97.0 ML/MIN Glucose 131 H (74-106) mg/dL Lactic Acid (0.4-2.0) Calcium 9.0 (8.4-10.2) mg/dL Total Bilirubin 0.80 (0.2-1.3) mg/dL AST 20 (14-36) U/L ALT 20 (0-35) U/L Alkaline Phosphatase 102 (38-126) U/L Troponin I (0.000-0.034) ng/mL NT-Pro-B Natriuret Pep 146 (<300) pg/mL Serum Total Protein 6.9 (6.3-8.2) g/dL Albumin 4.1 (3.5-5.0) g/dL Chest x-ray shows right lower lobe atelectasis versus mild infiltrate Procedures: [id number] CT/HEAD WITHOUT CONTRAST CLINICAL HISTORY: AMS TECHNIQUE: CT scan of the brain without contrast administration. Images were acquired in axial cuts with coronal and sagittal reformation. COMPARISON: CT dated: 08/24/2013. FINDINGS: No area of abnormally low or high attenuation value was seen. Age-matched central and cortical involutional brain changes as evident by prominent cortical sulci, widened basal cisterns, and mild ventricular dilatation. No CT evidence of acute infarction. No shift of the midline structures. No evidence of intra or extra axial recent hematoma. Normal appearance of the posterior fossa structures including the brainstem and cerebellum. Bone window settings showed hyperostosis frontalis with no evidence of fractures or destructive lesions. Deviated nasal septum to the left side. Clear scanned paranasal sinuses. IMPRESSION: 1. Age-matched involutional brain changes. 2. No evidence of acute infarction or recent hemorrhage. 3. No interval changes. Electronically Signed by: Juan Jett MD. (03/22/2023 01:54:09 EST) - Progress Progress: improved Air Movement: good Progress Note: This patient presents with dyspnea, most likely secondary to Viral upper respiratory. Presentation not consistent with acute cardiac etiologies to include ACS (non ischemic ekg, unremarkable trop), CHF, pericardial effusion / tamponade . Presentation not consistent with acute respiratory etiologies to include acute PE (Wells low risk), pneumothorax , asthma, COPD exacerbation, allergic etiologies, or infectious etiologies such as PNA. Presentation also not consistent with non-cardiopulmonary causes to include toxidromes, metabolic etiologies such as acidemia or electrolyte derangements, sepsis, neurologic causes (i.e. demyelinating diseases). There is right lower lobe atelectasis versus infiltrate. The patient be treated for atypical or mild commune acquired pneumonia. At this point her workup is overall reassuring. CAT scan of head was unremarkable. The patient will undergo cardiac workup. 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 There was a period of confusion tonight. At this point I do not see any signs of a stroke on my exam. 03/22/23 01:02 03/22/23 02:17 Chest x-ray shows a possible right lower lobe infiltrate. This could be an overcall but the patient is at over a week or 2 of coughing and upper respiratory symptoms. The patient be treated with Zithromax. The patient's head CT was unremarkable. 03/22/23 02:32 The patient is an elevated white count. She has not been on steroids. She had a fever at home. She has a 99 temp here. Initial temperature was not obtained as we are dealing with a stroke alert. The patient will have blood cultures and lactate drawn. The patient will be started on Levaquin due to multiple allergies. The patient has declined admission. The patient was welcome to return at any point. She will be given a dose of Levaquin here. I will change her prescriptions to Levaquin. The patient will follow-up with her primary care doctor on Friday. We will obtain lactate and blood cultures prior to disc harge. 03/22/23 02:34 I will have the patient just fill her Levaquin. I would not have her fill her Zithromax. 03/22/23 03:49 The patient's lactate is 1.6. There is no signs of an acute respiratory or infectious emergency. No signs of sepsis. There was elevated white count. The patient will be treated as an outpatient. The patient declined admission. The D-dimer was sent before I knew the patient had a fever. The D-dimer was only mildly elevated. I feel with the fever white count and infiltrate we have an answer in the form of pneumonia. The patient's been having over a week of cough fever chills and congestion. Once again the patient declined hospitalization. She was welcome to return. There is no evidence of severe sepsis. The patient's lactate is normal. Troponin is normal. She has had the symptoms for several days to over a week. 03/22/23 04:50 Blood Culture(s) Obtained: Yes Antibiotics given: Yes Counseled pt/family regarding: lab results, diagnosis, need for follow-up, rad results - Departure Departure Disposition: Home Clinical Impression: Upper respiratory infection, Dyspnea, Altered mental state, Bronchitis, Atypica l pneumonia Condition: Stable Critical Care Time: No Referrals: JERE PACHECO MD [Primary Care Provider] - Follow up/PCP as directed Instructions: Shortness of Breath (Dyspnea) (DC), Community-acquired pneumonia in adults, Atypical Pneumonia (Mycoplasma and Viral) (DC) Additional Instructions: Thank you for choosing our Emergency Department for your healthcare! Please take your medicines prescribed as directed and be assured that you follow up with the physician provided or your PCP in the next 1-2 days to assure you are improving. All medical problems cannot be reasonably diagnosed in your ED visit today. Return for any changes or concerns, including if your condition does not improve or you are unable to obtain follow-up. Some final results, including radiology reports, do not return the same day, but are available on the patient portal or can be obtained through your PCP. You had 2 antibiotics sent to the pharmacy. Fill the Levaquin. Prescriptions: Levofloxacin [Levaquin 500 MG Tablet] 500 mg PO DAILY #7 tablet Azithromycin 250 mg [Zithromax 250 MG TABLET] 250 mg PO ZPACK #6 tablet
--- NOTE | 2023-03-22 01:58 | XRAY ---
CLINICAL HISTORY: AMS TECHNIQUE: CT scan of the brain without contrast administration. Images were acquired in axial cuts with coronal and sagittal reformation. COMPARISON: CT dated: 08/24/2013. FINDINGS: No area of abnormally low or high attenuation value was seen. Age-matched central and cortical involutional brain changes as evident by prominent cortical sulci, widened basal cisterns, and mild ventricular dilatation. No CT evidence of acute infarction. No shift of the midline structures. No evidence of intra or extra axial recent hematoma. Normal appearance of the posterior fossa structures including the brainstem and cerebellum. Bone window settings showed hyperostosis frontalis with no evidence of fractures or destructive lesions. Deviated nasal septum to the left side. Clear scanned paranasal sinuses. IMPRESSION: 1. Age-matched involutional brain changes. 2. No evidence of acute infarction or recent hemorrhage. 3. No interval changes. Electronically Signed by: Juan Jett MD. (03/22/2023 01:54:09 EST)
[2023-03-22 02:12] LABS: Absolute Neutrophil Ct (ANC) 16.46 x10^3/uL (1.4-6.9); BASOPHIL % 0.2 % (0.0-0.4); Basophil (Absolute #) 0.04 x10^3/uL (0-0.4); Eosinophil (Absolute #) 0.01 x10^3/uL (0-0.5); Hematocrit 32.2 % (35-47); Hemoglobin 10.5 g/dL (12.0-16.0); IMMATURE GRAN # 0.15 x10^3u/L (0.00-0.03); IMMATURE GRAN % 0.7 % (0.00-0.4); Lymphocyte (Absolute #) 1.51 x10^3/uL (1.0-4.6); Lymphocytes % 7.4 % (24.0-44.0); Mean Cell Volume 93.9 fL (78-100); Mean Corpuscular Hemoglobin 30.6 pg (26-32); Mean Corpuscular Hgb Concent. 32.6 g/dL (32-36); Mean Platelet Volume 9.3 fL (7.5-11.0); Monocyte (Absolute #) 2.12 x10^3/uL (0.0-1.3); Monocytes % 10.4 % (0.0-12.0); Neutrophil % 81.3 % (36.0-66.0); Platelet Count 381 x10^3/uL (150-450); Red Blood Count 3.43 x10^6/uL (4.1-5.4); Red Cell Distribution Width 12.7 % (11.5-14.0); White Blood Count 20.3 x10^3/uL (4.0-10.5)
[2023-03-22] MEDS ORDERED: Levofloxacin 250MG Tablet PO ONE (02:36)
[2023-03-22 02:39] LABS: ALBUMIN 4.1 g/dL (3.5-5.0); ANION GAP 11.6 MEQ/L (5-15); BILIRUBIN,TOTAL 0.8 mg/dL (0.2-1.3); Creatinine 1 0.65 mg/dL (0.52-1.04); D-DIMER QUANTITATIVE 0.59 mg/L (0.0-0.50); INR 0.99 (0.8-3.0); PROTIME 10.8 SECONDS (9.4-12.5); PTT 28.6 SECONDS (25.1-36.5); Potassium 3.2 mmol/L (3.5-5.1); Total Protein 6.9 g/dL (6.3-8.2)
[2023-03-22] MEDS ORDERED: Levofloxacin 500 MG Tablet ONE (03:06)
[2023-03-22] MEDS ORDERED: Levofloxacin 500 MG Tablet PO ONE (03:10)
[2023-03-22 03:38] VITALS: RESP 16; TEMP 98.9
[2023-03-22 03:56] VITALS: BP 118/65; PULSE 89
[2023-03-22 05:19] LABS: Slide Review 1 YES
--- NOTE | 2023-03-22 08:48 | XRAY ---
Indication: Short of breath. Comparison: August 02, 2022 Portable chest demonstrates new mild left base infiltrate/atelectasis. Remaining heart and lungs unremarkable again with incidental tiny left costophrenic angle calcified granuloma. Bony thorax intact.
== END 2023-03-22 03:50 | disposition home or self-care (01) ==
LOC: ED 00:32
DX: J06.9 Acute upper respiratory infection, unspecified (principal); R06.00 Dyspnea, unspecified; R41.82 Altered mental status, unspecified; J40 Bronchitis, not specified as acute or chronic; J18.9 Pneumonia, unspecified organism; R05.9 Cough, unspecified; R53.1 Weakness; Z79.899 Other long term (current) drug therapy
CPT/HCPCS: 36415; 70450; 71045; 80053; 83605; 83880; 84484; 85025; 85379; 85610; 85730; 87040; 93005; 99284; A9270-GY

== ENCOUNTER 2023-10-09 08:45 | Emergency (ER) | payer MEDICARE ==
--- NOTE | 2023-10-09 10:05 | XRAY ---
Indication: Headache 5 days. Multiple contiguous axial images obtained through the head without contrast. Comparison: March 22, 2023 Normal appearing brain parenchyma, ventricles, and bony calvarium for patient's age. Visualized paranasal sinuses and mastoid air cells are clear. Impression: Continued normal CT head without contrast exam.
[2023-10-09] MEDS ORDERED: Reglan 10 MG/2 ML ONE (10:14)
[2023-10-09] MEDS ORDERED: SUBLIMAZE 100 MCG/2 ML ONE (10:14)
[2023-10-09] MEDS ORDERED: OFIRMEV 100 ML IV ONE (10:15)
[2023-10-09] MEDS ORDERED: Sodium Chloride 0.9% 1000 ML 1,000 ML ONE (10:15)
[2023-10-09] MEDS: SUBLIMAZE 100 MCG/2 ML IV ONE (10:16)
[2023-10-09] MEDS: Reglan 10 MG/2 ML IV ONE (10:16)
[2023-10-09] MEDS: Sodium Chloride 0.9% 1000 ML 1,000 ML IV SCH (10:19)
[2023-10-09] MEDS: OFIRMEV 1,000 MG/100 ML ML IV ONE (10:21)
[2023-10-09 10:22] LABS: INFLUENZA A NEGATIVE (NEGATIVE); INFLUENZA B NEGATIVE (NEGATIVE); RESPIRATORY SYNCTIAL VIRUS NEGATIVE (NEGATIVE); SARS-CoV-2 Xpert Express NEGATIVE (NEGATIVE)
[2023-10-09 10:35] VITALS: TEMP 97.8
--- NOTE | 2023-10-09 10:51 | ERPHSYRPT ---
- History of Present Illness Time Seen by Provider: 10/09/23 09:34 Source: patient, family Exam Limitations: no limitations Patient Subjective Stated Complaint: Headache Triage Nursing Assessment: Patient brought back to ED per w/c and transferred self to bed. Patient A+O X 3. Patient's skin pink, warm and dry. Patient complains of headache since Sunday 12/03 that makes her light sensitive. Patient complains of nausea, but denies vomiting. Physician History: 68-year-old female presented to the ER with complaints of frontal headache for the last 6 days, moderate to severe sharp, aggravated with loud noise, light and partial relief with sitting in a quiet dark room. Denies difficulty movements of neck/neck pain. Reports no nausea or vomiting. No history of migraines. Patient denies any fever or chills. No known sick contact. Patient was at pain management for her routine visit and is sent in here for further evaluation with CT head. Denies any focal numbness tingling or weakness. No difficulty speech or visual disturbance. Allergies/Adverse Reactions: diphenhydramine HCl [From Benadryl] Allergy (Severe, Verified 10/09/23 08:53) seizure Penicillins Allergy (Severe, Verified 10/09/23 08:53) Difficulty Breathing chamomile flower [chamomile lawler] Allergy (Mild, Verified 10/09/23 08:53) Blisters gabapentin [From Neurontin] Allergy (Mild, Verified 10/09/23 08:53) Hives Latex, Natural Rubber Allergy (Mild, Verified 10/09/23 08:53) Rash vancomycin Allergy (Mild, Verified 10/09/23 08:53) Itching only iv Home Medications: ARIPiprazole [Abilify] 5 mg PO DAILY 08/24/13 [History] Acetaminophen with Codeine [Tylenol #3 (Acetaminophen-Cod #3) Tablet] 1 tab PO Q6-8HPRN PRN 08/24/13 [History] Citalopram Hydrobromide [Citalopram HBr] 20 mg PO DAILY 08/24/13 [History] Dexlansoprazole [Dexilant] 60 mg PO DAILY 08/24/13 [History] Trazodone HCl 50 mg [Desyrel 50 mg] 50 mg PO DAILY 08/24/13 [History] Ciprofloxacin [Cipro 500 MG] 500 mg PO BID 10/20/13 [History] Solifenacin Succinate [Vesicare] 5 mg PO DAILY 10/20/13 [History] Hx Tetanus, Diphtheria Vaccination/Date Given: No Hx Influenza Vaccination/Date Given: No Hx Pneumococcal Vaccination/Date Given: No Immunizations Up to Date: Yes Travel Risk - International Travel Have you traveled outside of the country in past 3 weeks: No - Emerging Infectious Disease Are you exhibiting symptoms associated with any current EIDs: No - Review of Systems Constitutional: No Symptoms Eyes: No Symptoms Ears, Nose, & Throat: No Symptoms Respiratory: No Symptoms Cardiac: No Symptoms Abdominal/Gastrointestinal: No Symptoms Musculoskeletal: No Symptoms Skin: No Symptoms Neurological: Headache Psychological: No Symptoms Endocrine: No Symptoms Hematologic/Lymphatic: No Symptoms Immunological/Allergic: No Symptoms - Past Medical History Pertinent Past Medical History: Yes Neurological History: Other ENT History: No Pertinent History Cardiac History: No Pertinent History Respiratory History: Pneumonia Endocrine Medical History: Hypoglycemia Musculoskeletal History: Degenerative Disk Disease, Fractures, Osteoarthritis GI Medical History: Ulcer, GERD History: No Pertinent History Psycho-Social History: Depression, Anxiety Female Reproductive Disorders: No Pertinent History Other Medical History: PATIENT REPORTS "BRAIN INJURY" 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 REPORTS HX OF FALLS - WITH FX RIGHT LOWER LEG (WORE A BOOT), FX LEFT FOREARM (TREATED WITH SPLINTING). HX RIGHT KNEE REPLACEMENT (Y EAR UNKNOWN BUT > 5 YEARS). HX OF BLEEDING ULCER SO UNABLE TO TAKE NSAIDS - Past Surgical History Past Surgical History: Yes Neuro Surgical History: No Pertinent History Cardiac: No Pertinent History Respiratory: No Pertinent History Gastrointestinal: Cholecystectomy, Other Genitourinary: No Pertinent History Musculoskeletal: Orthopedic Surgery Female Surgical History: Hysterectomy, Section Other Surgical History: r knee x 7, r wrist - gastric bypass - Social History Smoking Status: Former smoker Exposure to second hand smoke: No Drug Use: none Patient Lives Alone: No - Social Determinants of Health Will the patient participate in the screening: Yes Do you worry about a steady place to live?: No Do you have any problems with any of the following?: No known problems In the past 12 months,have you had to go without utilities?: No Transportation Issues: No Has anyone in your support network made you feel unsafe?: No Have you or anyone in your house had to go without enough: No - Nursing Vital Signs Nursing Vital Signs: Initial Vital Signs Temperature 97.8 F 10/09/23 09:00 Pulse Rate 52 L 10/09/23 09:00 Respiratory Rate 18 10/09/23 09:00 Blood Pressure 116/72 10/09/23 09:00 O2 Sat by Pulse Oximetry 98 10/09/23 09:00 Pain Scale Pain Intensity 6 - Physical Exam General Appearance: no apparent distress, alert Eye Exam: PERRL/EOMI Ears, Nose, Throat Exam: normal ENT inspection Neck Exam: normal inspection, non-tender, supple, full range of motion Respiratory Exam: normal breath sounds, lungs clear Cardiovascular Exam: regular rate/rhythm, normal heart sounds Gastrointestinal/Abdominal Exam: soft, normal bowel sounds, No tenderness Extremity Exam: normal inspection, normal range of motion Mental Status Exam: alert, 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, 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 Exam: normal hearing, normal speech, PERRL Coordination/Gait Exam: normal finger to nose, normal cerebellar function, negative Romberg's sign Motor/Sensory Exam: no motor deficit, no sensory deficit, no pronator drift, negative Babinski's sign DTR Exam: bicep (R): 2+, bicep (L): 2+, knee (R): 2+, knee (L): 2+ Skin Exam: normal color SpO2 Interpretation: normal SpO2: 99 O2 Delivery: Room Air Ordered Tests: Active Orders 24 hr Category Date Time Status HEAD WITHOUT CONTRAST [CT] Stat Exams 10/09/23 09:16 Completed Medication Summary Generic Name Dose Route Start Last Admin Trade Name Freq PRN Reason Stop Dose Admin Sodium Chloride 1,000 mls @ 100 mls/hr 10/09/23 10:00 10/09/23 10:19 Sodium Chloride 0.9% 1000 Ml IV 11/08/23 09:59 100 mls/hr .Q10H GUNNAR Administration Discontinued Medications Generic Name Dose Route Start Last Admin Trade Name Freq PRN Reason Stop Dose Admin Fentanyl Citrate 50 mcg 10/09/23 09:53 10/09/23 10:16 Fentanyl Citrate 100 Mcg/2 Ml* Vial IV 10/09/23 09:54 50 mcg STAT ONE Administration Fentanyl Citrate Confirm 10/09/23 10:14 Fentanyl Citrate 100 Mcg/2 Ml* Vial Administered 10/09/23 10:15 Dose 100 mcg .ROUTE .STK-MED ONE Acetaminophen 1,000 mg in 100 mls @ 400 mls/hr 10/09/23 09:54 10/09/23 10:21 Ofirmev IV 10/09/23 10:08 400 mls/hr 1HRPRIOR ONE Administration Acetaminophen Confirm 10/09/23 10:15 Ofirmev Administered 10/09/23 10:16 Dose 100 mls @ ud IV .STK-MED ONE Metoclopramide HCl 10 mg 10/09/23 09:53 10/09/23 10:16 Metoclopramide Hcl 10 Mg/2 Ml Vial IV 10/09/23 09:54 10 mg STAT ONE Administration Metoclopramide HCl Confirm 10/09/23 10:14 Metoclopramide Hcl 10 Mg/2 Ml Vial Administered 10/09/23 10:15 Dose 10 mg .ROUTE .STK-MED ONE Lab/Rad Data: Laboratory Results 10/09/23 Range/Units 09:15 Influenza Type A Ag NEGATIVE (NEGATIVE) Influenza Type B Ag NEGATIVE (NEGATIVE) RSV (PCR) NEGATIVE (NEGATIVE) SARS-CoV-2 (PCR) NEGATIVE (NEGATIVE) - Progress Progress: improved Air Movement: good Progress Note: 10/09/23 12:06 68-year-old is evaluated in the ER for frontal headache for the last 5 to 6 days with nonfocal neuroexam. No signs of meningismus. CT head is obtained which is negative. She is given symptomatic treatment with migraine cocktail, on reevaluation her headache is better and patient likes to go home. Patient neuroexam remained nonfocal. She has a negative flu COVID and RSV. Recommended taking Tylenol as needed and outpatient follow-up with primary care for further evaluation and may need referral for neurology if continues to have headaches. Discussed signs symptoms of worsening needing return to ER which she seems understanding. Blood Culture(s) Obtained: No Antibiotics given: No Counseled pt/family regarding: lab results, diagnosis, need for follow-up, rad results Medical Desision Making - Independent Historian Additional History obtained from: Spouse - Diagnostic Testing Diagnostic test were ordered, analyzed, and reviewed by me: Yes Radiological Interpretation: Reviewed by me - Risk of complications The pt has a mod risk of morbidity or mortality based on: Need for prescription drug management - Departure Departure Disposition: Home Clinical Impression: Headache Condition: Stable Critical Care Time: No Referrals: JERE PACHECO MD [Primary Care Provider] - Follow up with PCP 1 day Instructions: Headache, Adult (DC) Additional Instructions: Take Tylenol as needed. Follow-up with primary care for reevaluation. Return to ER for intractable headache, visual disturbance, difficulty speech, numbness tingling focal weakness or if having fever chills/difficulty movements of neck etc.
[2023-10-09 11:15] VITALS: BP 79/57; PULSE 70; RESP 16
[2023-10-09 12:08] VITALS: O2SAT 99
== END 2023-10-09 12:22 | disposition home or self-care (01) ==
LOC: ED 08:45
DX: R51.9 Headache, unspecified (principal); Z79.899 Other long term (current) drug therapy
CPT/HCPCS: 0241U; 36000; 70450; 96374; 96375; 99284; J3010

== ENCOUNTER 2023-12-01 09:14 | Emergency (ER) | payer MEDICARE ==
[2023-12-01 09:27] VITALS: TEMP 98.2; O2SAT 99
--- NOTE | 2023-12-01 09:45 | ERPHSYRPT ---
- History of Present Illness Time Seen by Provider: 12/01/23 09:40 Source: patient, family Exam Limitations: no limitations Patient Subjective Stated Complaint: pt fell on concrete on Friday and injured her right wrist and right ribs, pt went to the ortho clinic this morning and does have a fracture in her wrist but still needs a chest x ray Triage Nursing Assessment: Pt brought to the ER by her , vitaledi wnl, rates pain as 8/10, finds it hard to take a breath due to pain, pt fell less than a month ago and injured in the same area, pulses normal, skin n/w/d, denies hitting head or LOC, denies any other injuries Physician History: Right lower lateral rib cage pain with tenderness After fall 4 dayPain is 9 out of 10 and it is sharp. Increases with a deep breathing and coughing. No relieving factors. Patient also had right wrist injury at the same time. She saw the orthopedic surgeon and was told that she had a hairline fracture. The right wrist is already splinted by the orthopedic surgeon but they told us that since their orthopedic surgeon they cannot take care of the ribs and they sent her to the ER for that. Occurred: days ago (4) Reason for Fall: lost balance Injuries/Pain Location: upper extremity, chest Loss of Consciousness: no loss of consciousness Quality: sharpness Severity of Pain-Max: moderate Severity of Pain-Current: severe Modifying Factors: Improves With: movement Associated Symptoms (Fall): chest pain, extremity injury, No abdominal pain, No back pain, No confusion, No headache, No lightheadedness, No muscle spasms Allergies/Adverse Reactions: diphenhydramine HCl [From Benadryl] Allergy (Severe, Verified 12/01/23 09:27) seizure Penicillins Allergy (Severe, Verified 12/01/23 09:27) Difficulty Breathing chamomile flower [chamomile lawler] Allergy (Mild, Verified 12/01/23 09:27) Blisters gabapentin [From Neurontin] Allergy (Mild, Verified 12/01/23 09:27) Hives Latex, Natural Rubber Allergy (Mild, Verified 12/01/23 09:27) Rash vancomycin Allergy (Mild, Verified 12/01/23 09:27) Itching only iv Home Medications: Trazodone HCl 50 mg [Desyrel 50 mg] 50 mg PO DAILY 08/24/13 [History] Folic Acid 0.8 mg PO DAILY 12/01/23 [History] Melatonin 5 mg PO DAILY 12/01/23 [History] Ospemifene [Osphena] 60 mg PO DAILY 12/01/23 [History] Oxybutynin Chloride Xl 5 mg [Ditropan XL 5 MG] 5 mg PO DAILY 12/01/23 [History] Oxycodone / APAP 10/325 mg [Oxycodone-Acetaminophen 10-325] 1 tab PO BID 12/01/23 [History] PANTOPRAZOLE 40 mg Tablet [Protonix 40MG Tablet] 40 mg PO QAM 12/01/23 [History] Pramipexole Di-HCl [Mirapex ER] 0.5 mg PO DAILY 12/01/23 [History] Hx Tetanus, Diphtheria Vaccination/Date Given: No Hx Influenza Vaccination/Date Given: No Hx Pneumococcal Vaccination/Date Given: No Travel Risk - International Travel Have you traveled outside of the country in past 3 weeks: No - Emerging Infectious Disease Are you exhibiting symptoms associated with any current EIDs: No - Review of Systems Constitutional: No Fever, No Chills Eyes: No Symptoms Ears, Nose, & Throat: No Symptoms Respiratory: Other (Right lower anterior chest wall pain), No Cough, No Dyspnea Cardiac: No Chest Pain, No Edema, No Syncope Abdominal/Gastrointestinal: No Abdominal Pain, No Nausea, No Vomiting, No Diarrhea Genitourinary Symptoms: No Dysuria Musculoskeletal: Other (Right Wrist Splinted), No Back Pain, No Neck Pain Skin: No Rash Neurological: No Dizziness, No Focal Weakness, No Sensory Changes Psychological: No Symptoms Endocrine: No Symptoms All Other Systems: Reviewed and Negative - Past Medical History Pertinent Past Medical History: Yes Neurological History: Other ENT History: No Pertinent History Cardiac History: No Pertinent History Respiratory History: Pneumonia Endocrine Medical History: Hypoglycemia Musculoskeletal History: Degenerative Disk Disease, Fractures, Osteoarthritis GI Medical History: Ulcer, GERD History: No Pertinent History Psycho-Social History: Depression, Anxiety Female Reproductive Disorders: No Pertinent History Other Medical History: PATIENT REPORTS "BRAIN INJURY" 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 REPORTS HX OF FALLS - WITH FX RIGHT LOWER LEG (WORE A BOOT), FX LEFT FOREARM (TREATED WITH SPLINTING). HX RIGHT KNEE REPLACEMENT (YEAR UNKNOWN BUT > 5 YEARS). HX OF BLEEDING ULCER SO UNABLE TO TAKE NSAIDS - Past Surgical History Past Surgical History: Yes Neuro Surgical History: No Pertinent History Cardiac: No Pertinent History Respiratory: No Pertinent History Gastrointestinal: Cholecystectomy, Other Genitourinary: No Pertinent History Musculoskeletal: Orthopedic Surgery Female Surgical History: Hysterectomy, Section Other Surgical History: r knee x 7, r wrist - gastric bypass - Social History Smoking Status: Former smoker Exposure to second hand smoke: No Drug Use: none Patient Lives Alone: No - Social Determinants of Health Will the patient participate in the screening: Yes Do you worry about a steady place to live?: No Do you have any problems with any of the following?: No known problems In the past 12 months,have you had to go without utilities?: No Transportation Issues: No Has anyone in your support network made you feel unsafe?: No Have you or anyone in your house had to go without enough: No - Nursing Vital Signs Nursing Vital Signs: Initial Vital Signs Temperature 98.2 F 12/01/23 09:19 Pulse Rate 57 L 12/01/23 09:19 Blood Pressure 134/72 12/01/23 09:19 O2 Sat by Pulse Oximetry 99 12/01/23 09:19 Pain Scale Pain Intensity 8 - [place] Coma Score Best Eye Response ([place]): (4) open spontaneously Best Verbal Response ([place]): (5) oriented Best Motor Response ([place]): (6) obeys commands Wendie Total: 15 - Physical Exam General Appearance: no apparent distress, alert Head Injury: no evidence of injury Eye Exam: PERRL/EOMI ENT Exam: airway nml Neck Exam: normal inspection, No tenderness Respiratory/Chest Exam: normal breath sounds, rib tenderness, No chest tenderness, No respiratory distress Cardiovascular Exam: normal heart sounds, regular rate/rhythm, No edema, No irregular Gastrointestinal Exam: soft, No tenderness, No distention, No guarding, No ecchymosis Back Exam: normal inspection, No vertebral tenderness Extremity Exam: pelvis stable, pain with movement (Right Wrist Splointed, Right Lower LAt ribs - PAin, tenderness), No deformities Neurologic Exam: alert, 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, cooperative, sensation nml, No motor deficits Skin Exam: normal color, warm, dry SpO2 Interpretation: normal SpO2: 99 - Course Nursing assessment & vital signs reviewed: Yes - Radiology Exams L-Spine X-ray Interpretation: Interpreted by me, Negative Ordered Tests: Active Orders 24 hr Category Date Time Status RIBS UNILATERAL W/ PA CXR Stat Exams 12/01/23 10:04 Completed Medication Summary Discontinued Medications Generic Name Dose Route Start Last Admin Trade Name Mei PRN Reason Stop Dose Admin Morphine Sulfate 2 mg 12/01/23 09:45 12/01/23 09:50 Morphine Sulfate 2 Mg/Ml Inj IM 12/01/23 09:46 2 mg STAT ONE Administration Morphine Sulfate Confirm 12/01/23 09:48 Morphine Sulfate 2 Mg/Ml Inj Administered 12/01/23 09:49 Dose 2 mg .ROUTE .STK-MED ONE Ondansetron HCl 4 mg 12/01/23 09:46 12/01/23 09:49 Zofran 4 Mg/Udtablet Orally Disintegrating PO 12/01/23 09:47 4 mg STAT ONE Administration Ondansetron HCl Confirm 12/01/23 09:48 Zofran 4 Mg/Udtablet Orally Disintegrating Administered 12/01/23 09:49 Dose 4 mg .ROUTE .STK-MED ONE - Progress Progress: improved Medical Desision Making - Risk of complications Low Risk: Low risk of morbidity from additional dx testing or treatment - Departure Departure Disposition: Home Clinical Impression: Chest wall contusion Qualifiers: Encounter type: initial encounter Laterality: right Qualified Code(s): S20.211A - Contusion of right front wall of thorax, initial encounter Condition: Stable Critical Care Time: No Referrals: JERE PACHECO MD [Primary Care Provider] - Follow up/PCP as directed
[2023-12-01] MEDS ORDERED: ZOFRAN ODT 4 MG ONE (09:48)
[2023-12-01] MEDS ORDERED: MORPHINE SULFATE 2 MG INJ ONE (09:48)
[2023-12-01] MEDS: ZOFRAN ODT 4 MG PO ONE (09:49)
[2023-12-01] MEDS: MORPHINE SULFATE 2 MG INJ IM ONE (09:50)
[2023-12-01 09:54] VITALS: PULSE 60; RESP 16
--- NOTE | 2023-12-01 10:36 | XRAY ---
Indication: Pain following fall. Comparison: None 2 view right ribs negative for acute fracture, dislocation, or suspicious bony lesions. Incidental osteopenia and minimal levoscoliosis centered at T11. PA chest demonstrates normal heart and lungs with incidental left costophrenic angle calcified granuloma.
[2023-12-01 11:03] VITALS: BP 146/69
== END 2023-12-01 11:03 | disposition home or self-care (01) ==
LOC: ED 09:14
DX: S20.211A Contusion of right front wall of thorax, initial encounter (principal); W19.XXXA Unspecified fall, initial encounter; Z79.891 Long term (current) use of opiate analgesic; Z79.899 Other long term (current) drug therapy
CPT/HCPCS: 71101; 96372; 99283; J2270; Q0162

== ENCOUNTER 2024-04-28 09:39 | Day surgery (SDC) | payer MEDICARE ==
[2024-04-28] MEDS ORDERED: Depo-Medrol 40 MG/ML IM ONE (09:40)
[2024-04-28] MEDS ORDERED: BUPIVACAINE 0.5% VIAL IJ ONE (09:40)
[2024-04-28] MEDS ORDERED: propofoL IV ONE (11:42)
--- NOTE | 2024-04-28 13:06 | XRAY ---
14 seconds of fluoroscopy was used in surgery for a right greater trochanteric bursa injection.
--- NOTE | 2024-04-28 13:07 | XRAY ---
Indication: Right greater trochanter bursa injection. Intraoperative fluoroscopy provided for 14 seconds. 2 digital spot image submitted for interpretation demonstrate needle tip projecting lateral to right greater trochanter. Small amount of contrast injected for needle tip placement. Correlate with intraoperative findings/report.
== END 2024-04-28 12:09 | disposition home or self-care (01) ==
LOC: SDC-PAIN 09:39
PROVIDERS: ATTEND Psychiatry & Neurology Pain Medicine
DX: M70.61 Trochanteric bursitis, right hip (principal)
CPT/HCPCS: 20610; 73501; 77002; 77003; J2704; Q9966

== ENCOUNTER 2025-01-08 20:22 | Emergency (ER) | payer MEDICARE ==
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
[2025-01-08] MEDS ORDERED: Keppra 500 MG/5 ML ONE (20:50)
[2025-01-08] MEDS ORDERED: D5w 100ML Mini Bag 100 ML 100 ML IV ONE (20:50)
[2025-01-08] MEDS: Keppra 500 MG/5 ML*** 1,000 MG in D5w 100ML Mini Bag 100 ML 100 ML IV ONE (20:51)
[2025-01-08 20:53] LABS: BASOPHIL % 0.2 % (0.1-1.2); Basophil (Absolute #) 0.02 x10^3/uL (0.01-0.08); Eosinophil (Absolute #) 0.09 x10^3/uL (0.04-0.36); Hematocrit 38.5 % (34.1-44.9); Hemoglobin 12.2 g/dL (11.2-15.7); IMMATURE GRAN # 0.03 x10^3u/L (0.001-0.031); IMMATURE GRAN % 0.3 % (0.001-0.429); Lymphocyte (Absolute #) 3.25 x10^3/uL (1.18-3.74); Mean Corpuscular Hemoglobin 29.8 pg (25.6-32.2); Mean Corpuscular Hgb Concent. 31.7 g/dL (32.2-35.5); Monocyte (Absolute #) 0.90 x10^3/uL (0.24-0.86); NUCLEATED RBC # 0.00 x10^3u/L (0.00-0.012); NUCLEATED RBC % 0.0 % (0.00-0.2); Platelet Count 355 x10^3/uL (182-369); Red Blood Count 4.10 x10^6/uL (3.93-5.22); White Blood Count 9.5 x10^3/uL (3.98-10.04)
[2025-01-08 21:07] LABS: Calcium 9.1 mg/dL (8.4-10.2); Carbon Dioxide 22.0 mmol/L (22-30); Creatinine 1 0.68 mg/dL (0.52-1.04); EST GLOMERULAR FILTRATION RATE 94.8 ML/MIN; Glucose 67.0 mg/dL (74-106); Potassium 3.9 mmol/L (3.5-5.1); SGOT/AST 42.0 U/L (14-36); SGPT/ALT 21.0 U/L (0-35); Total Protein 7.8 g/dL (6.3-8.2)
[2025-01-08 21:11] VITALS: TEMP 97.9
[2025-01-08 22:08] LABS: Glucose, Urine Negative (Negative); Protein,Urine Dip Negative (Negative); RBC 0-2 /HPF (0-5)
[2025-01-08 22:26] VITALS: RESP 14; O2SAT 97
--- NOTE | 2025-01-08 22:44 | XRAY ---
CLINICAL HISTORY: Ams COMPARISON: 10/08/2024 TECHNIQUE: Axial non-contrast CT scan of the brain was performed from the skull base to the high parietal region in axial, sagittal and coronal reconstructions. One of the following dose reduction techniques was utilized for this exam.Automated exposure control, adjustment of the mA and/or kV according to patient size, and use of iterative reconstruction. FINDINGS: Involutional brain changes are seen in the form of mild asymmetrical dilatation of the ventricular system(more on the right occipital horn) associated with prominent subarachnoid basal cisterns and relative exaggeration of the cortical sulci on both sides. 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 Orbits: Normal appearance of the globes, optic nerves, and extraocular muscles. No evidence of orbital masses or abnormal density. Sinuses: Clear paranasal sinuses. No evidence of sinusitis or mucosal thickening. deviated nasal septum to the left Mastoid Air Cells: Clear mastoid air cells. No evidence of mastoiditis. Skull: Normal skull morphology. IMPRESSION: 1. No acute intracranial or extracranial abnormalities 2. An atrophic brain changes with small artery disease. 3. No interval changes since the last study. Electronically Signed by: Sven Rivero MD. (01/08/2025 22:43:09 EST)
[2025-01-08] MEDS ORDERED: PERCOCET TABLET 5/325MG ONE (22:51)
[2025-01-08] MEDS: PERCOCET TABLET 5/325MG PO ONE (22:51)
[2025-01-08 23:14] VITALS: BP 105/65; PULSE 68
== END 2025-01-08 23:16 | disposition home or self-care (01) ==
LOC: ED 20:22
DX: G40.909 Epilepsy, unspecified, not intractable, without status epilepticus (principal); Z79.899 Other long term (current) drug therapy